=== PATIENT | male | born 1945 | race Caucasian/White ===

== ENCOUNTER 2016-07-08 21:26 | Emergency (ER) | payer MEDICARE, MEDICAID ==
[2016-07-08 22:04] VITALS: TEMP 97.6; BMI 24.7
[2016-07-08] MEDS ORDERED: Albuterol/Ipratropium Neb 3 ML NEB NEB ONE (22:15)
[2016-07-08] MEDS ORDERED: METHYLPREDNISOLONE 125 MG/2 ML VIAL IV ONE (22:15)
--- NOTE | 2016-07-08 22:19 | EDPRACDOC ---
<Amrit Ramos - Last Filed: 07/09/16 01:33> - General Information Information Source: Patient - History of Present Illness HPI: c/O sob, cp, sweats, and epigastric abdo pain, constipation x 2 days. Denies N/V /D, acute on chronic cough, sore throat, change in urine. Med hx = COPD, HTN, HDL, some unknown heart condition,, acid reflux. + etoh drinker, -smoker. Shortness of Breath: Mild Relevant History: Reports: COPD Cough: Reports: Non-productive Rhinorrhea: Denies: Clear, Bloody, Brown, Green, Purulent, None, O Ear Symptoms: Reports: None SOB Worsens with: Reports: Exertion SOB Improves with: Reports: Nothing <Eric Lynn - Last Filed: 07/09/16 04:14> - General Information Chief Complaint: Dyspnea/Resp distress Stated Complaint: DIFF/BREATHING Home Medications: Home Medications Albuterol Sulfate Nebs [Proventil, Ventolin] 3 ml NEB Q4-6H PRN 07/08/16 Amlodipine Besylate/Benazepril [Lotrel 10-20 mg Capsule] 1 cap PO DAILY Aspirin (Enteric Coated) [Ecotrin] 81 mg PO DAILY 07/08/16 Benazepril HCl [Lotensin] 20 mg PO DAILY 07/08/16 Carvedilol [Coreg] 6.25 mg PO BID 07/08/16 ClonazePAM [Klonopin] 0.25 mg PO QHS 07/08/16 Escitalopram Oxalate [Lexapro] 5 mg PO DAILY 07/08/16 Ferrous Sulfate 325 mg PO BID 07/08/16 Fluticasone/Salmeterol [Advair 500-50] 1 inh INH BID 07/08/16 Hydrochlorothiazide 25 mg PO DAILY 07/08/16 Omeprazole [Prilosec] 20 mg PO DAILY 07/08/16 Oxycodone HCl/Acetaminophen [Percocet 7.5-325 mg Tablet] 1 tab PO QID 07/08/16 Pravastatin Sodium 20 mg PO QHS 07/08/16 Prednisone [Deltasone, Orasone] 5 mg PO DAILY 07/08/16 Sennosides [Senna] 17.2 mg PO QHS 07/08/16 Tiotropium [place] [Spiriva] 18 mcg INH DAILY 07/08/16 Trazodone HCl [Desyrel] 50 mg PO QHS PRN 07/08/16 Albuterol Sulfate [Ventolin Hfa] 1 - 2 puff INH Q4H PRN #1 each 07/09/16 Levofloxacin [Levaquin] 750 mg PO DAILY #10 tab 07/09/16 PEG-Electrolytes (Miralax) [Miralax] 17 gm PO DAILY #10 pack 07/09/16 Prednisone [Sterapred 5 mg/6 day Uni-Pack] 21 tab PO DIR #1 pack 07/09/16 Allergies/Adverse Reactions: Allergies Allergy/AdvReac Type Severity Reaction Status Date / Time No Known Allergies Allergy Verified 07/08/16 22:06 - Treatment Prior to ED Arrival Reported 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 With Medication [employer] SUPERVISOR YES Medications [employer] SUPERVISOR (Medication/ SOLUMEDROL IV 125MG, COMBIVENT Dose/Time) EMS Treatment ALS <Amrit Ramos - Last Filed: 07/09/16 01:33> - Treatment Prior to ED Arrival Reported 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 With Medication [employer] SUPERVISOR YES Medications [employer] SUPERVISOR (Medication/ SOLUMEDROL IV 125MG, COMBIVENT Dose/Time) EMS Treatment ALS <Eric Lynn - Last Filed: 07/09/16 04:14> ED Past Medical History - History Reviewed Yes Nurses notes reviewed and agree except as marked - Patient Medical History Cardiac History: Reports: Hypertension, Hypercholesterolemia Respiratory History: Reports: COPD GI/ History: Reports: Gastroesophageal Reflux Psychological History: Denies: Depression - Social Medical History Smoking Status: Former smoker <Eric Lynn - Last Filed: 07/09/16 04:14> EDM Review of Systems - Review of Systems ROS Negative Except as Marked: Yes All systems reviewed and were negative except as marked Respiratory: Shortness of Breath Cardiovascular: Chest Pain Gastrointestinal: Pain <Eric Lynn - Last Filed: 07/09/16 04:14> - Physical Exam Last recorded Vital Signs: Last Vital Signs Temp 97.6 F 07/08/16 21:45 Pulse 84 07/08/16 22:15 Resp 22 07/08/16 22:15 BP 153/93 07/08/16 22:15 Pulse Ox 90 L 07/08/16 22:15 Oxygen Pulse Oxygen Saturation 90 O2 Device Nasal Cannula Oxygen Flow Rate 4 Fraction of Inspired Oxygen ( FIO2) <Amrit Ramos - Last Filed: 07/09/16 01:33> - Physical Exam Constitutional: Alert Oriented to: Time, Person, Place Last recorded Vital Signs: Last Vital Signs Temp 97.6 F 07/08/16 21:45 Pulse 82 07/08/16 21:45 Resp 28 H 07/08/16 22:04 BP 151/92 07/08/16 21:45 Pulse Ox 90 L 07/08/16 21:45 Oxygen Pulse Oxygen Saturation 90 O2 Device Nasal Cannula Oxygen Flow Rate 4 Fraction of Inspired Oxygen ( FIO2) - HEENT Head: Normal Eye Exam: negative: Conjunctival Injection, Scleral Icterus Oropharynx: negative: Drooling TMJ: Normal Nose: No Symptoms Reported Neck: Normal - Respiratory/Cardiovascular Respiratory: Normal - CTA Cardiovascular: Normal - GI Palpation: Normal Tenderness: Mild, Epigastric Chpain's Sign: Negative - Musculoskeletal Back: CVA Tenderness (bilat) Extremities: Normal - Integumentary Skin: Normal - Neurologic Mood Description: Normal Thought: Coherent <Eric Lynn - Last Filed: 07/09/16 04:14> ED SOB MDM - Re-evaluation Re-evaluation 2 Re-evaluation Time: 01:33 (PATIENT WAS TOLD HE WAS GOING HOME BECAUSE HE DID NOT MEET CRITERIA FOR ADMISSION. HE DEMANDED PAIN MEDICINE AND DESPITE CXR, BLOOD WORK, AND BREATHING TREATMENTS CONTINUED TO CLAIM NOTHING HAD BEEN DONE FOR HIM. HE THREATENE TO THROW HIMSELF ON THE FLOOR. HE THREATENED TO RETURN IMMEDIATELY. PATIENT ANGRY BECAUSE NO NARCOTICS WERE GIVEN. PATIENT HAD NO DIFFICULTY BREATHING DURING HIS SHOUTING EVENT AND WAS NOT SOB AT ALL.) - Results Result Diagrams: 07/08/16 21:50 07/08/16 21:50 Results: WBC 11.6 xk/uL (3.8-10.8) H 07/08/16 21:50 RBC 5.06 xM/uL (4.70-6.10) 07/08/16 21:50 Hgb 14.1 g/dL (14.0-18.0) 07/08/16 21:50 Hct 42.7 % (42-52) 07/08/16 21:50 MCV 85 fL (80-94) 07/08/16 21:50 MCH 27.9 pg (27-32) 07/08/16 21:50 MCHC 33.0 g/dl (33-36) 07/08/16 21:50 RDW 14.8 % (11.5-14.5) H 07/08/16 21:50 Plt Count 332 xk/uL (130-400) 07/08/16 21:50 MPV 8.8 fL (7.4-10.4) 07/08/16 21:50 Neut % (Auto) 75.7 % (45-76) 07/08/16 21:50 Lymph % (Auto) 16.5 % (17-44) L 07/08/16 21:50 [place] % (Auto) 6.6 % (3-10) 07/08/16 21:50 Eos % (Auto) 0.9 % (0-5) 07/08/16 21:50 Baso % (Auto) 0.3 % (0-2) 07/08/16 21:50 Absolute Neuts (auto) 8.70 xk/uL (1.7-8.2) H 07/08/16 21:50 Absolute Lymphs (auto) 1.86 xk/uL (0.65-4.75) 07/08/16 21:50 PT 10.1 SEC (9.2-11.2) 07/08/16 21:50 INR 1.0 07/08/16 21:50 APTT 26.4 SEC (22-35) 07/08/16 21:50 Sodium 132 mEq/L (137-146) L 07/08/16 21:50 Potassium 3.7 mEq/L (3.5-5.1) 07/08/16 21:50 Chloride 91 mEq/L (98-107) L 07/08/16 21:50 Carbon Dioxide 31 mMOL/L (22-33) 07/08/16 21:50 Anion Gap 14 mEq/L (8-16) 07/08/16 21:50 BUN 11 MG/DL (9-20) 07/08/16 21:50 Creatinine 0.60 MG/DL (0.66-1.25) L 07/08/16 21:50 Estimated GFR (MDRD) > 60 mL/min (>=60) 07/08/16 21:50 Glucose 113 MG/DL (70-99) H 07/08/16 21:50 Calculated Osmolality 255 MOs/Kg (270-290) L 07/08/16 21:50 Calcium 9.1 MG/DL (8.4-10.2) 07/08/16 21:50 Total Bilirubin 0.4 MG/DL (0.2-1.3) 07/08/16 21:50 AST 25 IU/L (17-59) 07/08/16 21:50 ALT 21 IU/L (21-72) 07/08/16 21:50 Alkaline Phosphatase 85 IU/L (50-160) 07/08/16 21:50 Troponin I < 0.01 ng/mL (<.04) 07/08/16 21:50 Jjz-S-Pykbhtgbwym Pept 85 pg/mL (0-900) 07/08/16 21:50 Total Protein 7.8 G/DL (6.3-8.2) 07/08/16 21:50 Albumin 4.4 G/DL (3.5-5.0) 07/08/16 21:50 Lipase 27 U/L (23-300) 07/08/16 21:50 Urine Color Yellow 07/08/16 23:53 Urine Clarity Clear 07/08/16 23:53 Urine pH 7.0 (5.0-8.0) 07/08/16 23:53 Ur Specific [place] 1.005 (1.003-1.035) 07/08/16 23:53 Urine Protein Neg (NEG/TRACE) 07/08/16 23:53 Urine Glucose (UA) Neg (NEGATIVE) 07/08/16 23:53 Urine Ketones Neg (NEGATIVE) 07/08/16 23:53 Urine Occult Blood Neg (NEG/TRACE) 07/08/16 23:53 Urine Nitrite Neg (NEGATIVE) 07/08/16 23:53 Urine Bilirubin Neg (NEGATIVE) 07/08/16 23:53 Urine Urobilinogen <2.0 MG/DL (0-1) 07/08/16 23:53 Ur Leukocyte Esterase Neg (NEGATIVE) 07/08/16 23:53 Urine RBC 0-2 (0-2) 07/08/16 23:53 Urine WBC 0-2 (0-2) 07/08/16 23:53 Urine Bacteria Few (NEG/FEW) 07/08/16 23:53 Urine Mucus Occ (NEG/OCC) 07/08/16 23:53 Lab Results 07/08/16 07/08/16 07/08/16 23:53 21:50 21:50 WBC 11.6 H RBC 5.06 Hgb 14.1 Hct 42.7 MCV 85 MCH 27.9 MCHC 33.0 RDW 14.8 H Plt Count 332 MPV 8.8 Neut % (Auto) 75.7 Lymph % (Auto) 16.5 L [place] % (Auto) 6.6 Eos % (Auto) 0.9 Baso % (Auto) 0.3 Absolute Neuts (auto) 8.70 H Absolute Lymphs (auto) 1.86 PT 10.1 INR 1.0 APTT 26.4 Sodium Potassium Chloride Carbon Dioxide Anion Gap BUN Creatinine Estimated GFR (MDRD) Glucose Calculated Osmolality Calcium Total Bilirubin AST ALT Alkaline Phosphatase Troponin I Lge-J-Egjyrvrzsqh Pept Total Protein Albumin Lipase Urine Color Yellow Urine Clarity Clear Urine pH 7.0 Ur Specific [place] 1.005 Urine Protein Neg Urine Glucose (UA) Neg Urine Ketones Neg Urine Occult Blood Neg Urine Nitrite Neg Urine Bilirubin Neg Urine Urobilinogen <2.0 Ur Leukocyte Esterase Neg Urine RBC 0-2 Urine WBC 0-2 Urine Bacteria Few Urine Mucus Occ 07/08/16 21:50 WBC RBC Hgb Hct MCV MCH MCHC RDW Plt Count MPV Neut % (Auto) Lymph % (Auto) [place] % (Auto) Eos % (Auto) Baso % (Auto) Absolute Neuts (auto) Absolute Lymphs (auto) PT INR APTT Sodium 132 L Potassium 3.7 Chloride 91 L Carbon Dioxide 31 Anion Gap 14 BUN 11 Creatinine 0.60 L Estimated GFR (MDRD) > 60 Glucose 113 H Calculated Osmolality 255 L Calcium 9.1 Total Bilirubin 0.4 AST 25 ALT 21 Alkaline Phosphatase 85 Troponin I < 0.01 Nic-Q-Pjqmiejzgnd Pept 85 Total Protein 7.8 Albumin 4.4 Lipase 27 Urine Color Urine Clarity Urine pH Ur Specific [place] Urine Protein Urine Glucose (UA) Urine Ketones Urine Occult Blood Urine Nitrite Urine Bilirubin Urine Urobilinogen Ur Leukocyte Esterase Urine RBC Urine WBC Urine Bacteria Urine Mucus <Amrit Ramos - Last Filed: 07/09/16 01:33> - Re-evaluation Re-evaluation 1 Re-evaluation Time: 23:38 (pt sleeping. O2 sats up to 94. When woken pt states his SOB is better after neb. ) - Results Result Diagrams: 07/08/16 21:50 07/08/16 21:50 - EKG EKG #1 EKG Time: 21:51 -: Yes EKG interpreted by me Rate: bpm: 85 Rhythm: NSR ST: Normal Comments: no prior EKG - Diagnostic Imaging Chest Image interpreted by: Radiologist Diagnostic Imaging Comments: EXAM: CHEST 2 VIEW COMPARISON: None. FINDINGS: The lungs are well-aerated. Vascular congestion is noted, with patchy bilateral opacities likely reflecting atelectasis. Mild interstitial edema might have a similar appearance. There is no evidence of pleural effusion or pneumothorax. The heart is borderline normal in size. No acute osseous abnormalities are seen. IMPRESSION: Vascular congestion, with patchy bilateral airspace opacities likely reflecting atelectasis. Mild interstitial edema might have a similar appearance. Electronically Signed By: Jerrell Frost M.D. On: 07/08/2016 23:11 Abdomen Image interpreted by: Radiologist Diagnostic Imaging Comments: EXAM: DG ABDOMEN ACUTE W/ 1V CHEST COMPARISON: Radiograph dated 07/08/2016 FINDINGS: There is moderate stool throughout the colon. No evidence of bowel obstruction. No free air. No radiopaque calculi. Right upper quadrant cholecystectomy clips. There is degenerative changes of the spine. No acute fracture. Single-view of the chest demonstrates mild congestive changes with patchy bilateral airspace densities, likely atelectatic changes. There is no focal consolidation pleural effusion or pneumothorax. Top-normal cardiac size. The osseous structures appear unremarkable. IMPRESSION: Constipation. No evidence of bowel obstruction. No focal pulmonary consolidation. Electronically Signed By: Josué Swanson M.D. On: 07/09/2016 00:40 - Additional Information Additional Information: Pt VS nml. O2 sats have been consistent at 92-94% during his stay. Pt was given solumedrol by EMS and a duoneb here and stated his breathing was better. Now, upon d/c at 1:21 he is complaining loudly that we did not teat his neck pain and headache pain, neither of which were mentioned in triage or during my exam and re-evaluation. Rx that we are sending him home with for his COPD and constipation conditions have been explained to him, but pt feels we are doing nothing for him, despite the lab work, imaging and duoneb and solumedrol. Pt has home rx for pain management of chronic neck pain. Pt has been advised to resume that medication upon his return home. <Eric Lynn - Last Filed: 07/09/16 04:14> <Amrit Ramos - Last Filed: 07/09/16 01:33> Decision Time to Discharge: 00:55 - Departure Disposition: Home Education/Counseling Given To: Patient Education/Counseling Given Regarding: Diagnosis, Treatment, Prognosis, Follow Up <ShaneEric Lindsey - Last Filed: 07/09/16 04:14> - Departure Condition: Stable Final Diagnosis: COPD exacerbation Constipation Qualifiers: Constipation type: unspecified constipation type Qualified Code(s): K59.00 - Constipation, unspecified Instructions: COPD (Chronic Obstructive Pulmonary Disease) (ED), Constipation ( ED) Referrals: None,No Provider [Primary Care Provider] - One Week Marylin Crawford MD [Staff Physician] - One Week Prescriptions: Albuterol Sulfate [Ventolin Hfa] 1 - 2 puff INH Q4H PRN #1 each PRN Reason: SHORTNESS OF BREATH Levofloxacin [Levaquin] 750 mg PO DAILY #10 tab PEG-Electrolytes (Miralax) [Miralax] 17 gm PO DAILY #10 pack Prednisone [Sterapred 5 mg/6 day Uni-Pack] 21 tab PO DIR #1 pack Additional Instructions: Follow up with primary care for COPD exacerbation and constipation. Use inhaler at home as directed for SOB symptoms. Take miralax daily for constipation. Return to ED for any new or worsening symptoms.
--- NOTE | 2016-07-08 23:14 | DIRPT ---
CLINICAL DATA: Acute onset of shortness of breath, substernal chest pain, diaphoresis and epigastric abdominal pain. Constipation. Initial encounter. EXAM: CHEST 2 VIEW COMPARISON: None. FINDINGS: The lungs are well-aerated. Vascular congestion is noted, with patchy bilateral opacities likely reflecting atelectasis. Mild interstitial edema might have a similar appearance. There is no evidence of pleural effusion or pneumothorax. The heart is borderline normal in size. No acute osseous abnormalities are seen. IMPRESSION: Vascular congestion, with patchy bilateral airspace opacities likely reflecting atelectasis. Mild interstitial edema might have a similar appearance. Electronically Signed By: Jerrell Frost M.D. On: 07/08/2016 23:11
[2016-07-08 23:19] LABS: AUTOMATED BASOPHIL 0.3 % (0-2); AUTOMATED EOSINOPHIL 0.9 % (0-5); AUTOMATED LYMPH 16.5 % (17-44); AUTOMATED MONOCYTE 6.6 % (3-10); AUTOMATED NEUTROPHIL 75.7 % (45-76); MPV 8.8 fL (7.4-10.4)
[2016-07-08 23:31] LABS: BLOOD UREA NITROGEN 11 MG/DL (9-20); CALCIUM 9.1 MG/DL (8.4-10.2); CALCULATED OSMOLALITY 255 MOs/Kg (270-290); CHLORIDE 91 mEq/L (98-107); GLUCOSE 113 MG/DL (70-99); SODIUM LEVEL 132 mEq/L (137-146); TOTAL PROTEIN 7.8 G/DL (6.3-8.2)
[2016-07-08 23:33] LABS: PARTIAL THROMB. TIME 26.4 SEC (22-35)
[2016-07-09 00:09] LABS: LEUKOCYTES/URINE NEG (NEGATIVE); NITRITE/URINE NEG (NEGATIVE); RBC/URINE 0-2 (0-2); URINE OCCULT BLOOD NEG (NEG/TRACE); WBC/URINE 0-2 (0-2)
--- NOTE | 2016-07-09 00:43 | DIRPT ---
CLINICAL DATA: 70-year-old male with abdominal pain and constipation. EXAM: DG ABDOMEN ACUTE W/ 1V CHEST COMPARISON: Radiograph dated 07/08/2016 FINDINGS: There is moderate stool throughout the colon. No evidence of bowel obstruction. No free air. No radiopaque calculi. Right upper quadrant cholecystectomy clips. There is degenerative changes of the spine. No acute fracture. Single-view of the chest demonstrates mild congestive changes with patchy bilateral airspace densities, likely atelectatic changes. There is no focal consolidation pleural effusion or pneumothorax. Top-normal cardiac size. The osseous structures appear unremarkable. IMPRESSION: Constipation. No evidence of bowel obstruction. No focal pulmonary consolidation. Electronically Signed By: Josué Swanson M.D. On: 07/09/2016 00:40
[2016-07-09] MEDS ORDERED: OXYCODONE HCL 5 MG TABLET PO ONE ×2 (00:44→01:34)
[2016-07-09] MEDS ORDERED: ONDANSETRON HCL 4 MG ODT TAB PO ONE ×2 (00:44→01:34)
[2016-07-09] MEDS ORDERED: Albuterol/Ipratropium Neb 3 ML NEB NEB ONE (01:33)
[2016-07-09 02:58] VITALS: BP 159/81; PULSE 94
== END 2016-07-09 03:00 | disposition home or self-care (01) ==
LOC: ED 21:26
DX: J44.1 Chronic obstructive pulmonary disease with (acute) exacerbation (principal); K59.00 Constipation, unspecified
CPT/HCPCS: 36415; 71020; 74022; 80053; 81001; 83690; 83880; 84484; 85025; 85610; 85730; 93005; 94640; 99284; A9270; J7620; J3490